=== PATIENT | female | born 1985 ===

== ENCOUNTER → 2017-03-20 | Outpatient (CLI) | payer BC ==
--- NOTE | 2017-03-20 16:40 | DIAGNOSTIC IMAGING REPORT ---
R SHOULDER MIN 2 VIEWS HISTORY: 31 years-old Female RIGHT SHOULDER PAIN acute right shoulder pain. Initial exam COMPARISON: None available TECHNIQUE: 3 views of the right shoulder FINDINGS: No acute fracture, dislocation or significant degenerative changes. Bone mineralization is within normal limits. Soft tissues are unremarkable without opaque foreign body. IMPRESSION: No acute bony abnormality or significant degenerative changes. The above report was generated using voice recognition software. It may contain grammatical, syntax or spelling errors. Electronically signed by: Kg Mendez M.D. 03/20/2017 4:39 PM Dictated Date/Time: 03/20/2017 4:37 PM
== END | disposition home or self-care (01) ==
LOC: C.RDSM 10:59
PROVIDERS: ATTEND Family Medicine
DX: M25.511 Pain in right shoulder (principal)